=== PATIENT | male | born 1985 | race Two or more races ===

== ENCOUNTER 2019-08-16 09:23 | Emergency (ER) | payer MEDICAID, OTHER ==
[~2019-08-16] VITALS: Ht 170.2 cm; Wt 63.5 kg
[2019-08-16 10:06] VITALS: BP 129/79
[2019-08-16] MEDS ORDERED: BENZOCAINE (DENTAL) 20 % SPRAY 60ML MT ONE (10:30)
[2019-08-16] MEDS ORDERED: ACETAMINOPHEN 500 MG TAB PO ONE (10:30)
[2019-08-16] MEDS ORDERED: methylPREDNISolone SOD SUCC 125 MG/2 ML VL IM ONE (10:30)
== END 2019-08-16 11:14 | disposition home or self-care (01) ==
LOC: ER 09:23
DX: K02.9 Dental caries, unspecified (principal)
CPT/HCPCS: 96372; 99283; J2930